=== PATIENT | female | born 2000 | race Caucasian/White ===

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

== ENCOUNTER 2022-04-12 02:02 | Emergency (ER) | payer MEDICAID ==
[~2022-04-12] VITALS: Ht 175 cm; Wt 63.5 kg
[~2022-04-12 02:02] MED LIST changes: +DOCU-143 PO; +FERR325T18 PO; +IBUP-844 PO
[2022-04-12 02:16] VITALS: BP 160/111
[2022-04-12] MEDS ORDERED: DARU1TAB3 (02:21)
[2022-04-12] MEDS ORDERED: DOLU1TAB2 (02:21)
[2022-04-12] MEDS ORDERED: SERT-413 (02:21)
--- NOTE | 2022-04-12 03:06 | ED EENT ---
History of Present Illness General Chief Complaint: Oral/Throat Problems Stated Complaint: LIP SWELLING/POSSIBLE INFECTION/CHEWED ON LIP Nursing Triage Note: C/O SWELLING TO LEFT LOWER LIP SINCE 1800 04/11/22 AFTER BITING LIP WHEN NERVOUS. Source: patient Exam Limitations: no limitations History of Present Illness Date Seen by Provider: Apr 12, 2022 Time Seen by Provider: 02:52 Initial Comments 21 yo female presents to the ER with a complaint of swollen left lower lip. She states she has been agitated recently and "biting" in the side of her lower lip on the left. It has progressively gotten more and more swollen. She has anxiety. does not take anything for it. No other complaints of illness or infection - she was concerned that her lip is infected. No bleeding. SHe states she has put ice packs on it. She does appear agitated with some pressured speech - similar to possible methamphetamine intoxication. Timing/Duration: gradual Severity: moderate Location: mouth Prearrival Treatment: over the counter meds ("pain reliever") Associated Symptoms: denies symptoms Allergies and Home Medications Allergies Coded Allergies: sulfamethoxazole (Verified Allergy, Unknown, 04/16/07) trimethoprim (Verified Allergy, Unknown, 04/16/07) Patient Home Medication List Home Medication List Reviewed: Yes Darunavir/Cob/Emtri/Tenof Alaf (Symtuza [phone] mg Tab) 800 Mg-150 Mg-200 Mg-10 Mg Tablet, (Reported) Entered as Reported by: NAVI VARELA on 04/12/22220 Last Action: New Order Dolutegravir Sodium/Lamivudine (Dovato 50-300 mg Tablet) 50 Mg-300 Mg Tablet, (Reported) Entered as Reported by: NAVI VARELA on 04/12/22220 Last Action: New Order Sertraline HCl (Sertraline HCl) 50 Mg Tablet, (Reported) Entered as Reported by: NAVI VARELA on 04/12/22220 Last Action: New Order Discontinued Medications Docusate Sodium (Colace) 100 Mg Capsule, 100 MG PO BID Discontinued Reason: No Longer Taking Prescribed by: LORNA MARINELLI on 09/24/18746 Last Action: Discontinued Ferrous Sulfate (Ferrous Sulfate) 325 Mg Tablet, 325 MG PO DAILY Discontinued Reason: No Longer Taking Prescribed by: LORNA MARINELLI on 09/24/18746 Last Action: Discontinued Ibuprofen (Ibu) 600 Mg Tablet, 600 MG PO Q6H Discontinued Reason: No Longer Taking Prescribed by: LORNA MARINELLI on 09/24/18746 Last Action: Discontinued Pnv #14/Ferrous Fum/Folic Acid (Completenate Tablet Chew) 1 Each Tab.chew, 1 EACH PO DAILY Discontinued Reason: No Longer Taking Prescribed by: LORNA MARINELLI on 09/24/18746 Last Action: Discontinued Review of Systems Review of Systems Constitutional: see HPI Eyes: No Symptoms Reported Ears: No Symptoms Reported Nose: see HPI Mouth: other (swelling left lower lip) Throat: no symptoms reported Respiratory: no symptoms reported Cardiovascular: no symptoms reported Gastrointestinal: no symptoms reported Neurological: Anxiety All Other Systems Reviewed Negative Unless Noted: Yes Past Rfmpmyx-Imfpgy-Drlkkf Hx Patient Social History Tobacco Use?: No Substance use?: No Alcohol Use?: No Pt feels they are or have been: No Immunizations Up To Date PED Vaccines UTD: Yes Seasonal Allergies Seasonal Allergies: No Past Medical History Surgery/Hospitalization HX: HIV, ANXIETY/DEPRESSION Surgeries: No Respiratory: No Cardiac: No Neurological: No Reproductive Disorders: No Female Reproductive Disorders: Denies Genitourinary: No Gastrointestinal: No Musculoskeletal: No Endocrine: No HEENT: No Cancer: No Psychosocial: No Integumentary: No Blood Disorders: No Adverse Reaction/Blood Tranf: No Family Medical History Cardiovascular disease 19 FATHER (father from cardiovascular disease. Pt does not know the specifics, but will ask her mom in am.) Physical Exam Vital Signs Vital Signs - First Documented 04/12/22 02:16 Temp 36.8 Pulse 120 Resp 16 B/P (MAP) 160/111 (127) Pulse Ox 98 O2 Delivery Room Air Height, Weight, BMI Height: 5'9.00" Weight: 210lbs. 2.0oz. [id number]; 20.00 BMI Method:Stated General Appearance: WD/WN, mild distress (anxious) Eyes: bilateral eye normal inspection, bilateral eye PERRL, bilateral eye EOMI Ears: bilateral ear auricle normal Nose: normal inspection Mouth/Throat: pharynx normal; No dental tenderness, No excessive drooling; other (edema left lower lip - she has avulsed the inner mucosa off of her lip. no open wounds; no bleeding. no erythema surrounding the swelling; tender to palpation) Neck: supple, normal inspection Cardiovascular: regular rate, rhythm Respiratory: lungs clear, normal breath sounds, no respiratory distress Neurologic/Psychiatric: alert, oriented x 3, other (anxious, pressured speech) Skin: normal color, warm/dry Progress/Results/Core Measures Results/Orders Vital Signs/I&O Blood Pressure Mean: 127 Departure Impression Primary Impression: Lip injury Qualified Codes: S09.93XA - Unspecified injury of face, initial encounter Disposition: HOME, SELF-CARE Condition: Stable Departure-Patient Inst. Decision time for Depature: 03:04 Referrals: [facility] Patient Instructions: Mouth and Dental Injuries in Adults Add. Discharge Instructions: Continue to use ice packs to the swollen area of your lip for at least 20 minutes at a time 4-5 times a day. Try to stop biting on your lip. Ibuprofen 600 mg which is 3 tablets of either Advil or Motrin every 6 hours with food for swelling and discomfort. Follow-up with your primary care doctor. Return to the emergency department for any new, concerning or emergent complaints. [facility] [phone] [address] [place] [address] Get Immediate Help [email or web address] or Call [phone]) - GREG HANKINS MD Apr 12, 2022 03:05
== END 2022-04-12 03:10 | disposition home or self-care (01) ==
LOC: EDUNIT# 02:02 → ER 02:05
DX: S09.93XA Unspecified injury of face, initial encounter (principal); X58.XXXA Exposure to other specified factors, initial encounter
CPT/HCPCS: 99281

== ENCOUNTER 2022-06-05 18:01 | Emergency (ER) | payer MEDICAID ==
[~2022-06-05] VITALS: Ht 175.3 cm; Wt 63.5 kg
[~2022-06-05 18:01] MED LIST changes: +DARU1TAB3; +DOLU1TAB2; +SERT-413
[2022-06-05] MEDS ORDERED: LACTATED RINGERS 1,000 ML IV ONE (18:30)
[2022-06-05 18:38] LABS: BASOPHILS % (AUTO) 1 % (0-10); EOSINOPHILS % (AUTO) 0 % (0-10); HEMATOCRIT 39 % (35-52); HEMOGLOBIN 13.4 g/dL (11.5-16.0); LYMPHOCYTES % (AUTO) 11 % (12-44); MEAN CORPUSCULAR HEMOGLOBIN 31 pg (25-34); MEAN CORPUSCULAR HGB CONC 34 g/dL (32-36); MEAN CORPUSCULAR VOLUME 92 fL (80-99); MEAN PLATELET VOLUME 11.4 fL (9.0-12.2); MONOCYTES # (AUTO) 0.6 10^3/uL (0.0-1.0); MONOCYTES % (AUTO) 7 % (0-12); NEUTROPHILS # (AUTO) 7.2 10^3/uL (1.8-7.8); NEUTROPHILS % (AUTO) 81 % (42-75); PLATELET COUNT 210 10^3/uL (130-400); WHITE BLOOD COUNT 8.8 10^3/uL (4.3-11.0)
[2022-06-05 18:39] LABS: BILIRUBIN,URINE NEGATIVE (NEGATIVE); CLARITY,URINE CLEAR; COLOR,URINE YELLOW; GLUCOSE, URINE (UA) NEGATIVE (NEGATIVE); KETONES,URINE NEGATIVE (NEGATIVE); LEUKOCYTE ESTERASE ,URINE NEGATIVE (NEGATIVE); NITRITE,URINE NEGATIVE (NEGATIVE); PROTEIN,URINE NEGATIVE (NEGATIVE)
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
[2022-06-05 18:55] LABS: ALBUMIN 3.8 GM/DL (3.2-4.5); CHLORIDE 99 MMOL/L (98-107); POTASSIUM 3.3 MMOL/L (3.6-5.0); SODIUM 136 MMOL/L (135-145)
[2022-06-05 18:56] LABS: BACTERIA,URINE FEW /HPF; WBC,URINE 0-2 /HPF
[2022-06-05 18:57] LABS: AMYLASE 59 U/L (25-125)
[2022-06-05 18:58] LABS: GLUCOSE 100 MG/DL (70-105); TOTAL PROTEIN 6.8 GM/DL (6.4-8.2)
[2022-06-05 18:59] LABS: BILIRUBIN,TOTAL 0.6 MG/DL (0.1-1.0); CARBON DIOXIDE 23 MMOL/L (21-32)
[2022-06-05 19:01] LABS: ALKALINE PHOSPHATASE 73 U/L (40-136); GFR ESTIMATED 108
[2022-06-05 19:02] LABS: BUN/CREATININE RATIO 11
[2022-06-05 19:03] LABS: AMPHETAMINE SCREEN, URINE POSITIVE (NEGATIVE); BENZODIAZEPINES SCREEN URINE NEGATIVE (NEGATIVE); CANNABINOID SCREEN, URINE POSITIVE (NEGATIVE); COCAINE SCREEN URINE NEGATIVE (NEGATIVE)
[2022-06-05 19:04] LABS: BARBITURATE SCREEN URINE NEGATIVE (NEGATIVE); METHADONE STAT NEGATIVE (NEGATIVE); OPIATE SCREEN URINE NEGATIVE (NEGATIVE); OXYCODONE STAT NEGATIVE (NEGATIVE); PROPOXYPHENE STAT NEGATIVE (NEGATIVE); TRICYCLIC ANTIDEPRESSANTS SCRE NEGATIVE (NEGATIVE)
[2022-06-05 19:04] LABS: ACETAMINOPHEN < 10 UG/ML (10-30); ALANINE AMINOTRANSFERASE 18 U/L (0-55)
[2022-06-05 19:05] LABS: MAGNESIUM 1.6 MG/DL (1.6-2.4)
[2022-06-05 19:06] LABS: CREATINE KINASE 254 U/L (29-168); LIPASE 33 U/L (8-78)
[2022-06-05 19:12] LABS: CREATINE KINASE MB 2.1 NG/ML (<6.6)
[2022-06-05] MEDS ORDERED: IOHEXOL 350 MG/ML 100 ML (OMNIPAQUE 350) VIAL IV ONE (19:15)
[2022-06-05] MEDS ORDERED: NS 100 ML (IVPB) BAG IV ONE (19:15)
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
[2022-06-05 20:12] LABS: PROTHROMBIN TIME PATIENT 13.7 SEC (12.2-14.7)
[2022-06-05] MEDS ORDERED: CIPR500T5 PO (20:34)
[2022-06-05] MEDS ORDERED: L. A1CAP11 PO (20:34)
[2022-06-05] MEDS ORDERED: TRAM-42 PO (20:34)
[2022-06-05] MEDS ORDERED: DICY20TA PO (20:34)
[2022-06-05] MEDS ORDERED: METR-145 PO (20:34)
[2022-06-05] MEDS ORDERED: metroNIDAZOLE 500 MG (FLAGYL) TAB PO ONE (20:45)
[2022-06-05] MEDS ORDERED: CIPROFLOXACIN 500 MG (CIPRO) TABLET PO SCH (20:45)
[2022-06-05 20:55] VITALS: BP 144/95
== END 2022-06-05 20:57 | disposition home or self-care (01) ==
LOC: EDUNIT# 18:01 → ER 18:02
DX: S22.32XA Fracture of one rib, left side, initial encounter for closed fracture (principal); S39.012A Strain of muscle, fascia and tendon of lower back, initial encounter; S00.11XA Contusion of right eyelid and periocular area, initial encounter; S06.9X9A Unspecified intracranial injury with loss of consciousness of unspecified duration, initial encounter; N39.0 Urinary tract infection, site not specified; F12.90 Cannabis use, unspecified, uncomplicated; K52.9 Noninfective gastroenteritis and colitis, unspecified; Z28.310 Unvaccinated for COVID-19; V86.65XA Passenger of 3- or 4- wheeled all-terrain vehicle (ATV) injured in nontraffic accident, initial encounter
CPT/HCPCS: 36415; 70450; 70486; 71045; 71260; 72125; 72128; 72131; 72170; 74177; 80053; 80306; 80320; 80329; 81000; 82150; 82550; 82553; 83690; 83735; 83874; 84703; 85025; 85610; 85730; 87088